=== PATIENT | female | born 1975 | race Two or more races ===

== ENCOUNTER 2024-12-02 13:43 | Inpatient (IN) | payer OTHER ==
[~2024-12-02] VITALS: Ht 157.5 cm; Wt 49.9 kg
[2024-12-02] MEDS ORDERED: 0.9 % SODIUM CHLORIDE 1,000 ML IV STA (13:51)
--- NOTE | 2024-12-02 14:22 | NUR ---
PTE ALERTA Y ORIENTADA X3 LLEGA A MARLYS POR AMBULANCIA YA QUE LLEVA MAS DE [address] CON NIVELES DE GLUCOS[place] EN 400. AL MOMENTO DE TRIAGE LA MISMA TUVO NIVELES DE 97 MG/DL EN EL DXT. SE CONECTA A MONITOR CARDIACO Y OXYMETRIA DE [place], SE COLOCA H/L. SE RECOLECTAN MUESTRAS Y SE MARGARITA MEDICAMENTO SEGUBN ORDEN MEDICA.
[2024-12-02 14:25] VITALS: BP 180/94; O2SAT 100
[2024-12-02 15:24] LABS: BUN CREA RATIO 11.0 (7.0-25.0); CREATININE SERUM 0.56 mg/dL (0.55-1.02); GFR 115.06; GLUCOSE FASTING 103.0 mg/dL (65-100); GLUCOSE RANDOM 103.0 mg/dL (65-100); OSMOLALITY SERUM 272.0 MOSM/KG (275-295)
[2024-12-02] MEDS ORDERED: MAGNESIUM SULFATE IN WATER 50 ML IV NR (16:00)
[2024-12-02 16:33] LABS: BASO % 0.2 % (0.1-1.2); EOS # 0.00 (0.04-0.54); EOS % 0.0 % (0.7-7.0); LYMPH # 1.01 (1.18-3.74); LYMPH % 9.0 % (19.3-53.1); MEAN PLATELET VOLUME 8.90 fl (9.4-12.4); MONO # 0.32 (0.24-0.82); MONO % 2.8 % (4.7-12.5); NEUT # 9.88 (1.56-6.13); NEUT % 87.7 % (34.0-71.1); RED CELL DISTRIBUTION WIDTH 13.3 % (11.6-14.4)
[2024-12-02 16:53] LABS: ABG PH 7.402 (7.35-7.45); ABG PO2 139.7 mmHg (80-100); BICARBONATE 19.9 mmol/l (23-25)
[2024-12-02 17:55] LABS: o2 28 %
[2024-12-02] MEDS ORDERED: POTASSIUM PHOS,M-BASIC-D-BASIC 9 MM in 0.9 % SODIUM CHLORIDE 250 ML IV ONE (19:00)
[2024-12-02] MEDS ORDERED: CEFTRIAXONE SODIUM 2,000 MG in 0.9 % SODIUM CHLORIDE 100 ML IV SCH (19:55)
[2024-12-02] MEDS ORDERED: FAMOTIDINE/PF 20 MG in 0.9 % SODIUM CHLORIDE 8 ML IV PUSH SCH (19:55)
[2024-12-02] MEDS ORDERED: DEXTROSE 50 % IN WATER 0.5 G/ML DISP.SYRIN IV PRN (20:00)
[2024-12-02] MEDS ORDERED: ACETAMINOPHEN 500 MG GEL..CAP PO PRN (20:00)
[2024-12-02] MEDS ORDERED: 0.9 % SODIUM CHLORIDE 1,000 ML IV SCH (20:00)
[2024-12-02] MEDS ORDERED: INSULIN LISPRO 1,000 UNIT/10 ML UNITS SUBCUTANEO PRN (20:00)
[2024-12-02] MEDS ORDERED: ONDANSETRON HCL 4 MG in 0.9 % SODIUM CHLORIDE 50 ML IV PRN (20:00)
== END 2024-12-02 21:39 | disposition left against medical advice (07) | DRG 391 ==
LOC: ER 13:43 → MEDJ 20:00
PROVIDERS: Emergency Medicine; ADMIT Internal Medicine; ATTEND Internal Medicine
DX: R11.2 Nausea with vomiting, unspecified (principal); E11.10 Type 2 diabetes mellitus with ketoacidosis without coma; E87.8 Other disorders of electrolyte and fluid balance, not elsewhere classified; Z79.4 Long term (current) use of insulin; Z53.29 Procedure and treatment not carried out because of patient's decision for other reasons